=== PATIENT | female | born 1995 | race Caucasian/White ===

== ENCOUNTER 2021-12-19 20:36 | Observation (INO) ==
[2021-12-19] MEDS ORDERED: Ringers Solution, Lactated 1,000 ML ONE (20:46)
[2021-12-19] MEDS ORDERED: *HR* Nalbuphine 10 MG/ML AMPUL IV PRN (20:53)
[2021-12-19] MEDS ORDERED: Ringers Solution, Lactated 1,000 ML IVC SCH (21:00)
[2021-12-19 21:07] LABS: Bilirubin,Urine Negative (Negative); Blood,Urine Negative (Negative); Clarity,Urine Clear (Clear); Color,Urine Colorless (Yellow); Glucose,Urine (UA) Normal (Normal); Ketones,Urine Negative (Negative); Leukocyte Esterase,Urine Negative (Negative); Nitrite,Urine Negative (Negative); Protein,Urine Negative (Neg-Trace); Urobilinogen,Urine Normal (Normal)
[2021-12-19 21:13] LABS: Basophils % 0.3 %; Eosinophils # 0.1 K/mcL (0.0-0.6); Hematocrit 35.3 % (35.3-44.9); Hemoglobin 12.4 g/dL (11.5-15.4); Immature Granulocytes % 0.9 % (0-4); Lymphocytes # 2.5 K/mcL (0.6-4.6); Lymphocytes % 27.4 %; Mean Corpuscular HGB Conc 35.1 g/dL (31.6-35.5); Mean Corpuscular Hemoglobin 32.5 pg (28.0-33.3); Mean Corpuscular Volume 92.4 fL (83.0-100.0); Mean Platelet Volume 10.2 fL (9.4-12.4); Monocytes # 0.5 K/mcL (0.0-1.3); Monocytes % 5.3 %; Platelet Count 255 K/mcL (140-400); Red Blood Count 3.82 M/mcL (3.82-4.97); Red Cell Distribution Width 12.4 % (11.5-14.5); Segmented Neutrophils % 65.1 %; White Blood Count 9.3 K/mcL (4.3-11.1)
[2021-12-19 21:29] LABS: BUN/Creatinine Ratio 16 (6-26); Blood Urea Nitrogen 11 mg/dL (6-20); Calcium 8.6 mg/dL (8.6-10.3); Carbon Dioxide 20 mEq/L (23-29); Chloride 105 mEq/L (98-107); Glucose 114 mg/dL (70-105); Osmolality,Calculated 278 (280-300); Potassium 3.9 mEq/L (3.5-5.1); Sodium 134 mEq/L (136-145); eGFR For African Americans > 60 (> 60); eGFR For Non-African Americans > 60 (> 60)
[2021-12-19 22:23] LABS: Candida DNA Not Detected (Not Detect); Gardnerella DNA Not Detected (Not Detect); Trichomonas DNA Not Detected (Not Detect)
[2021-12-19] MEDS ORDERED: Betamethasone Acet/SodPhos 30 MG/5 ML VIAL IM SCH (23:00)
[2021-12-19] MEDS ORDERED: NIFEdipine Immed Rel 10 MG CAPSULE PO ONE (23:00)
== END 2021-12-20 00:20 | disposition home or self-care (01) ==
LOC: 1NENULAB
PROVIDERS: ADMIT Advanced Practice Midwife; ATTEND Advanced Practice Midwife

== ENCOUNTER → 2021-12-20 22:05 | Observation (INO) ==
[~2021-12-20 22:05] MED LIST: Betamethasone Acet/SodPhos 30 MG/5 ML VIAL IM SCH
== END | disposition home or self-care (01) ==
LOC: 1NENULAB
PROVIDERS: ADMIT Registered Nurse; ATTEND Registered Nurse

== ENCOUNTER → 2022-01-25 05:03 | Observation (INO) ==
[~2022-01-25 05:03] MED LIST changes: +*HR* Nalbuphine 10 MG/ML AMPUL IV PRN; -Betamethasone Acet/SodPhos 30 MG/5 ML VIAL IM SCH
== END | disposition home or self-care (01) ==
LOC: 1NENULAB
PROVIDERS: ADMIT Advanced Practice Midwife; ATTEND Advanced Practice Midwife

== ENCOUNTER 2022-01-25 13:54 | Inpatient (IN) ==
[~2022-01-25 13:54] MED LIST changes: +Azithromycin 500 MG in 0.9 % Sodium Chloride 250 ML IVPB PRN; +Famotidine 20 MG/2 ML VIAL IVP PRN; +Metoclopramide 10 MG/2 ML VIAL IVP PRN; +Naloxone 0.4 MG/ML INJ IVP PRN; +Ondansetron 4 MG/2 ML VIAL IVP PRN
[2022-01-25 14:23] LABS: Basophils # 0.1 K/mcL (0.0-0.2); Basophils % 0.5 %; Eosinophils # 0.1 K/mcL (0.0-0.6); Eosinophils % 0.5 %; Hematocrit 35.7 % (35.3-44.9); Hemoglobin 12.2 g/dL (11.5-15.4); Immature Granulocytes % 0.7 % (0-4); Lymphocytes % 20.1 %; Mean Corpuscular HGB Conc 34.2 g/dL (31.6-35.5); Mean Corpuscular Hemoglobin 31.4 pg (28.0-33.3); Mean Platelet Volume 10.8 fL (9.4-12.4); Monocytes # 0.5 K/mcL (0.0-1.3); Monocytes % 4.8 %; Neutrophils # 7.3 K/mcL (1.6-8.9); Platelet Count 215 K/mcL (140-400); Red Blood Count 3.88 M/mcL (3.82-4.97); Red Cell Distribution Width 12.6 % (11.5-14.5); Segmented Neutrophils % 73.4 %; White Blood Count 9.9 K/mcL (4.3-11.1)
[2022-01-25] MEDS: Ringers Solution, Lactated 1,000 ML IVC SCH (15:00)
[2022-01-25] MEDS ORDERED: Epidural Premix (fent/bupiv) 110 ML EP SCH (15:45)
[2022-01-25] MEDS ORDERED: EPHEDrine 50 MG/ML VIAL IVP PRN (15:45)
[2022-01-25] MEDS ORDERED: Ropivacaine/PF 0.2% 20 ML VIAL ONE (16:12)
[2022-01-25] MEDS ORDERED: *HR* FentaNYL (PF) 100 MCG/2 ML VIAL ONE (16:12)
[2022-01-25 17:18] LABS: Influenza A PCR Negative (Negative); Influenza B PCR Negative (Negative); Resp. Syncytial Virus PCR Negative (Negative)
[2022-01-25 17:46] LABS: SARS-CoV-2 by PCR (In House) Negative (Negative)
[2022-01-25] MEDS ORDERED: Oxytocin 30 UNIT/503 ML BAG IVC ONE (19:29)
[2022-01-25] MEDS ORDERED: Oxytocin 30 UNIT/503 ML BAG IVC SCH (19:30)
[2022-01-26] MEDS ORDERED: Ropivacaine/PF 0.2% 20 ML VIAL ONE (06:05)
[2022-01-26 09:58] LABS: Basophils % 0.3 %; Eosinophils % 0.1 %; Hematocrit 32.1 % (35.3-44.9); Hemoglobin 10.8 g/dL (11.5-15.4); Immature Granulocytes % 0.6 % (0-4); Lymphocytes # 2.4 K/mcL (0.6-4.6); Lymphocytes % 15.9 %; Mean Corpuscular HGB Conc 33.6 g/dL (31.6-35.5); Mean Corpuscular Hemoglobin 31.9 pg (28.0-33.3); Mean Corpuscular Volume 94.7 fL (83.0-100.0); Mean Platelet Volume 11.1 fL (9.4-12.4); Monocytes # 0.8 K/mcL (0.0-1.3); Monocytes % 5.2 %; Neutrophils # 11.9 K/mcL (1.6-8.9); Platelet Count 211 K/mcL (140-400); Red Blood Count 3.39 M/mcL (3.82-4.97); Red Cell Distribution Width 12.6 % (11.5-14.5); Segmented Neutrophils % 77.9 %
[2022-01-26 10:01] LABS: Basophils # 0.1 K/mcL (0.0-0.2); White Blood Count 15.3 K/mcL (4.3-11.1)
[2022-01-26] MEDS: Ringers Solution, Lactated 1,000 ML IVC SCH (10:27)
[2022-01-26] MEDS ORDERED: Ibuprofen 600 MG TABLET PO ONE (10:44)
[2022-01-26] MEDS ORDERED: miSOPROStoL 100 MCG TABLET RC ONE (10:53)
[2022-01-26] MEDS ORDERED: Methylergonovine 0.2 MG/ML AMPUL IM ONE (10:53)
[2022-01-26] MEDS ORDERED: ceFAZolin 1,000 MG in Water for inj. (sterile) 10 ML IVP SCH (11:00)
[2022-01-26] MEDS ORDERED: Benzocaine/Menthol 56 GM AEROSOL SPRAY TP PRN (13:24)
[2022-01-26] MEDS ORDERED: OXYTOCIN/RINGERS LACTATE 10 UNIT/166.6 ML BAG IVC ONE (13:24)
[2022-01-26] MEDS ORDERED: Oxytocin 30 UNIT/503 ML BAG IVC SCH (13:24)
[2022-01-26] MEDS ORDERED: Lanolin 7 G OINT...G. TP PRN (13:24)
[2022-01-26] MEDS ORDERED: Ondansetron ODT 4 MG TAB.RAPDIS SL PRN (13:24)
[2022-01-26] MEDS: Acetaminophen 325 MG TABLET PO SCH ×2 (14:00→21:03)
[2022-01-26] MEDS: ceFAZolin 1,000 MG in Water for inj. (sterile) 10 ML IVP SCH (16:20)
[2022-01-26] MEDS: Ibuprofen 600 MG TABLET PO SCH (17:28)
[2022-01-27] MEDS: Ibuprofen 600 MG TABLET PO SCH ×4 (00:04→21:11)
[2022-01-27] MEDS: ceFAZolin 1,000 MG in Water for inj. (sterile) 10 ML IVP SCH ×2 (00:05→09:08)
[2022-01-27 05:04] LABS: Basophils % 0.2 %; Eosinophils # 0.1 K/mcL (0.0-0.6); Eosinophils % 0.5 %; Hematocrit 23.6 % (35.3-44.9); Immature Granulocytes % 0.7 % (0-4); Lymphocytes # 2.6 K/mcL (0.6-4.6); Lymphocytes % 19.3 %; Mean Corpuscular HGB Conc 33.1 g/dL (31.6-35.5); Mean Corpuscular Hemoglobin 31.2 pg (28.0-33.3); Mean Corpuscular Volume 94.4 fL (83.0-100.0); Mean Platelet Volume 10.6 fL (9.4-12.4); Monocytes # 0.7 K/mcL (0.0-1.3); Monocytes % 5.5 %; Neutrophils # 9.9 K/mcL (1.6-8.9); Platelet Count 163 K/mcL (140-400); Red Cell Distribution Width 12.8 % (11.5-14.5); Segmented Neutrophils % 73.8 %; White Blood Count 13.3 K/mcL (4.3-11.1)
[2022-01-27 05:13] LABS: Hemoglobin 7.8 g/dL (11.5-15.4)
[2022-01-27] MEDS: Prenatal Vit/FA 1 EACH TABLET PO SCH (09:07)
[2022-01-27] MEDS: Acetaminophen 325 MG TABLET PO SCH ×3 (09:08→21:10)
[2022-01-28] MEDS: Ibuprofen 600 MG TABLET PO SCH (04:41)
[2022-01-28] MEDS: Acetaminophen 325 MG TABLET PO SCH (04:42)
[2022-01-28 04:53] VITALS: O2SAT 100
[2022-01-28] MEDS: Prenatal Vit/FA 1 EACH TABLET PO SCH (08:17)
[2022-01-28] MEDS ORDERED: Sodium Ferric Gluconat/Sucrose 125 MG in 0.9 % Sodium Chloride 100 ML IVPB ONE (08:54)
[2022-01-28 09:29] VITALS: BP 109/68; PULSE 71; TEMP 97.5
== END 2022-01-28 14:00 | disposition home or self-care (01) | DRG 560 ==
LOC: 1NENULAB → 1NENUOBS 01-26 13:15
PROVIDERS: ADMIT Registered Nurse; ATTEND Registered Nurse